=== PATIENT | male | born 1960 | race Caucasian/White ===

== ENCOUNTER 2022-04-13 06:49 | Outpatient (CLI) | payer BC, SELFPAY | END 2022-04-13 06:50 | disposition home or self-care (01) | PROVIDERS: PCP Family Medicine; Visit Provider Surgery | DX: Z12.11 Encounter for screening for malignant neoplasm of colon (principal); K63.5 Polyp of colon | CPT/HCPCS: 45385; 88305; 99153; J1200; J2250; J3010 ==

== ENCOUNTER 2024-02-22 08:21 | Outpatient (CLI) | payer BC, SELFPAY | END 2024-02-22 08:22 | disposition home or self-care (01) | LOC: NFLDREF 02-26 18:05 | PROVIDERS: PCP Family Medicine; Referring Provider Family Medicine; Visit Provider Family Medicine | DX: E78.5 Hyperlipidemia, unspecified (principal); Z12.5 Encounter for screening for malignant neoplasm of prostate; C73 Malignant neoplasm of thyroid gland | CPT/HCPCS: 80053; 80061; 84443; G0103 ==

== ENCOUNTER 2025-04-06 07:58 | Outpatient (CLI) | payer BC, SELFPAY | END 2025-04-06 07:59 | disposition home or self-care (01) | LOC: NFLDREF 16:58 | PROVIDERS: PCP Family Medicine; Referring Provider Family Medicine; Visit Provider Family Medicine | DX: E78.5 Hyperlipidemia, unspecified (principal); E03.9 Hypothyroidism, unspecified; Z86.39 Personal history of other endocrine, nutritional and metabolic disease | CPT/HCPCS: 80053; 80061; 84443 ==